=== PATIENT | male | born 1965 | race Caucasian/White ===

== ENCOUNTER 2018-03-28 12:40 | Emergency (ER) | payer OTHER ==
[~2018-03-28] VITALS: Ht 175.3 cm; Wt 72.6 kg
[~2018-03-28 12:40] MED LIST: ACETAMINOPHEN-1 EAC1 PO; BACTRIM DS TAB1 EACH; CLONAZEPAM 1 MG1 M1 PO; DICLOFENAC SODI75 MG PO; HYDROCODONE-AP1 EAC6 PO; HYDROXYZINE HCL25 M1 PO; IBUPROFEN 800800 M1 PO; LEVAQUIN 500 M500 M2 PO; TRAMADOL 50 MG50 MG PO; ZANAFLEX4 MG PO
[2018-03-28] MEDS ORDERED: CLONAZEPAM 0.50.5 M1 PO (12:52)
[2018-03-28] MEDS ORDERED: TRAMADOL 50 MG50 MG PO (12:52)
[2018-03-28 13:36] LABS: URINE BILIRUBIN NEGATIVE (Negative); URINE BLOOD NEGATIVE (Negative); URINE CLARITY CLEAR; URINE COLOR YELLOW; URINE GLUCOSE-RANDOM NEGATIVE (Negative); URINE KETONES NEGATIVE (Negative); URINE LEUKOCYTES NEGATIVE (Negative); URINE NITRITE NEGATIVE (Negative); URINE PROTEIN NEGATIVE (Negative); URINE SPECIFIC GRAVITY 1.015 (1.005-1.030); URINE UROBILINOGEN 0.2 E.U./dl (0.2-1.0)
[2018-03-28 13:37] LABS: ABSOLUTE EOSINOPHILS 0.1 thou/uL (0.0-0.7); ABSOLUTE LYMPHOCYTES 1.7 thou/uL (0.8-5.3); ABSOLUTE MONOCYTES 0.7 thou/uL (0.0-1.2); ABSOLUTE NEUTROPHILS 9.8 thou/uL (1.6-8.1); BASOPHILS 0.3 %; EOSINOPHILS 0.9 %; HEMATOCRIT 44.5 % (42.0-52.0); HEMOGLOBIN 14.9 gm/dL (14.0-18.0); LYMPHOCYTES 14.1 %; MCH 31.8 pg (26.0-34.0); MCHC 33.6 g/dL (28.0-37.0); MCV 94.9 fL (80.0-100.0); MONOCYTES 5.3 %; MPV 9.4 fl. (7.2-11.1); NUCLEATED RBCS 0 /100WBC; PLATELET COUNT* 265 thou/uL (150-400); POLYS 79.4 %; RBC 4.69 mil/uL (4.50-6.00); WBC 12.3 thou/uL (4.0-11.0)
[2018-03-28 13:41] LABS: CALCIUM 8.7 mg/dL (8.5-10.1); CREATININE 1.1 mg/dL (0.6-1.3); POTASSIUM 4.3 mmol/L (3.5-5.1)
[2018-03-28 13:45] LABS: ALBUMIN 4.4 g/dL (3.4-5.0); TOTAL BILIRUBIN 0.7 mg/dL (<0.1-1.0); TOTAL PROTEIN 7.4 g/dL (6.4-8.2)
[2018-03-28] MEDS ORDERED: HYDROCODONE-AP1 EAC6 PO (15:39)
[2018-03-28] MEDS ORDERED: NABUMETONE 750750 M1 PO (15:39)
[2018-03-28 15:48] VITALS: BP 135/77
== END 2018-03-28 15:49 | disposition home or self-care (01) ==
LOC: M.ERS 12:40
PROVIDERS: Nurse Practitioner Family
DX: R10.32 Left lower quadrant pain (principal); R51 Headache

== ENCOUNTER 2021-03-20 12:15 | Emergency (ER) | payer OTHER ==
[~2021-03-20] VITALS: Ht 175.3 cm; Wt 72.6 kg
[~2021-03-20 12:15] MED LIST changes: +CLONAZEPAM 0.50.5 M1 PO; +NABUMETONE 750750 M1 PO
[2021-03-20] MEDS ORDERED: TRAMADOL 50 MG50 MG PO (14:17)
[2021-03-20 14:50] VITALS: BP 134/68
== END 2021-03-20 14:51 | disposition home or self-care (01) ==
LOC: M.ERS 12:15
DX: S82.434A Nondisplaced oblique fracture of shaft of right fibula, initial encounter for closed fracture (principal); Z87.442 Personal history of urinary calculi; W18.39XA Other fall on same level, initial encounter; Y93.89 Activity, other specified; Y92.89 Other specified places as the place of occurrence of the external cause; Y99.8 Other external cause status